=== PATIENT | male | born 1955 | race Caucasian/White ===

== ENCOUNTER → 2016-11-09 | Outpatient (CLI) | payer OTHER ==
[~2016-11-09] MED LIST: ATEN-173 PO; CETI10TA84 PO; CLON2TAB3 PO; FLUO20CA36 PO; GABA1CAP5 PO; LANS30CA12 PO; PSEU60TA80 PO; SIMV20TA2 PO; TIZA4CAP PO; TRAM-10 PO; TRIA3AER NAE; ZNTT/150 PO
[2016-11-09 13:32] LABS: AST/SGOT 52 U/L (15-37); BLOOD UREA NITROGEN 12 mg/dl (7-18); CALCIUM 8.8 mg/dl (8.5-10.1); CARBON DIOXIDE 28 mmol/L (21-32); CHLORIDE 103 mmol/L (98-107); CREATININE 0.98 mg/dl (0.60-1.40); GLUCOSE 111 mg/dl (70-99); SODIUM 140 mmol/L (136-145)
[2016-11-09 13:35] LABS: ALT/SGPT 72 U/L (12-78); CHOLESTEROL 168 mg/dl (0-200); CHOLESTEROL/HDL RATIO 2.7; HDL CHOLESTEROL 63 mg/dl; LDL CHOLESTEROL CALCULATED 73 mg/dl; TRIGLYCERIDES 160 mg/dl (0-150); VERY LOW DENSITY LIPOPROT CALC 32 mg/dl
== END | disposition home or self-care (01) ==
LOC: C.LABMFLN 08:22
PROVIDERS: ATTEND Family Medicine
DX: E78.5 Hyperlipidemia, unspecified (principal); I10 Essential (primary) hypertension

== ENCOUNTER → 2016-11-10 | Outpatient (CLI) | payer OTHER ==
[2016-11-10 12:54] LABS: URINE APPEARANCE CLEAR (CLEAR); URINE BILIRUBIN NEG (NEG); URINE COLOR DK YELLOW; URINE NITRITE NEG (NEG); URINE SPECIFIC GRAVITY 1.026 (1.000-1.030); UROBILINOGEN NEG (NEG)
[2016-11-10 12:59] LABS: MANUAL MICROSCOPIC REQUIRED? NO; REVIEW REQ? NO
== END | disposition home or self-care (01) ==
LOC: C.LABMFLN 10:30
PROVIDERS: ATTEND Family Medicine
DX: R10.30 Lower abdominal pain, unspecified (principal)

== ENCOUNTER → 2017-02-13 | Outpatient (CLI) | payer OTHER ==
--- NOTE | 2017-02-13 12:33 | DIAGNOSTIC IMAGING REPORT ---
L-SPINE MIN 4 VIEWS ROUTINE CLINICAL HISTORY: LUMBAR RADICULOPATHY COMPARISON: Lumbar spine CT myelogram March 22, 2013. FINDINGS: A posterior decompression is noted. Discectomies with interbody spacer placement are noted at the L2-L3, L3-L4 and L4-L5 levels. There are bilateral pedicle screws at the L2, L3 and L5 levels. Hardware is intact. There is no acute fracture. Osteophytosis is noted at L1-L2. IMPRESSION: 1. No acute lumbar spine fracture or subluxation. 2. Status post multilevel discectomy and bilateral pedicle screw fusion, as described above. Hardware intact. Electronically signed by: Edmond Rogers M.D. 02/13/2017 12:32 PM Dictated Date/Time: 02/13/2017 12:29 PM
--- NOTE | 2017-02-13 12:37 | DIAGNOSTIC IMAGING REPORT ---
RIGHT HIP 2 VIEWS HISTORY: CHRONIC RIGHT HIP PAIN Right COMPARISON: Right hip 04/06/2016. FINDINGS: There is no fracture or dislocation. Soft tissues are unremarkable. The visualized pelvic bones are intact. Mild cartilage space narrowing within the superior aspect of the right hip. IMPRESSION: No fractures. Mild right hip osteoarthritis, unchanged. Electronically signed by: Chris Taylor M.D. 02/13/2017 12:35 PM Dictated Date/Time: 02/13/2017 12:29 PM
== END | disposition home or self-care (01) ==
LOC: C.RAD 11:03
PROVIDERS: ATTEND Family Medicine
DX: M25.552 Pain in left hip (principal); M54.16 Radiculopathy, lumbar region; M25.551 Pain in right hip; G89.29 Other chronic pain

== ENCOUNTER → 2017-03-31 | Outpatient (CLI) | payer OTHER ==
[2017-03-31 13:15] LABS: BASO % 0.6 %; BASO ABS # 0.05 K/uL (0-0.2); COMPLETE YES; EOS % 4.1 %; HEMATOCRIT 42.3 % (42-52); IG% 0.1 %; LYMPH % 33.7 %; LYMPH ABS # 2.73 K/uL (1.2-3.4); MEAN CELL VOLUME 81.7 fL (80-100); MEAN CORPUSCULAR HEMOGLOBIN 27.2 pg (25-34); MEAN CORPUSCULAR HGB CONC 33.3 g/dl (32-36); MEAN PLATELET VOLUME 9.9 fL (7.4-10.4); MONO % 8.9 %; NEUT % 52.6 %; PLATELET COUNT 275 K/uL (130-400); RED BLOOD COUNT 5.18 M/uL (4.7-6.1); WHITE BLOOD COUNT 8.11 K/uL (4.8-10.8)
[2017-03-31 13:54] LABS: URINE APPEARANCE CLEAR (CLEAR); URINE BILIRUBIN NEG (NEG); URINE COLOR DK YELLOW; URINE NITRITE NEG (NEG); URINE PH 5.5 (4.5-7.5); URINE SPECIFIC GRAVITY 1.026 (1.000-1.030); UROBILINOGEN NEG (NEG)
[2017-03-31 14:00] LABS: MANUAL MICROSCOPIC REQUIRED? NO; REVIEW REQ? NO
== END | disposition home or self-care (01) ==
LOC: C.LABMFLN 08:40
PROVIDERS: ATTEND Family Medicine
DX: R07.89 Other chest pain (principal); R07.81 Pleurodynia; R61 Generalized hyperhidrosis

== ENCOUNTER → 2017-04-03 | Outpatient (CLI) | payer OTHER ==
--- NOTE | 2017-04-03 12:24 | DIAGNOSTIC IMAGING REPORT ---
CHEST 2 VIEWS ROUTINE CLINICAL HISTORY: Atypical chest pain. Rib tenderness. COMPARISON STUDY: Chest radiograph March 31, 2014. FINDINGS: There is no pneumothorax or pleural effusion. No consolidation to suggest pneumonia. Pulmonary vascularity is normal. Cardiomediastinal silhouette is normal. There is an old fracture of the midshaft of the right clavicle. IMPRESSION: No acute cardiopulmonary findings. Electronically signed by: Edmond Rogers M.D. 04/03/2017 12:23 PM Dictated Date/Time: 04/03/2017 12:22 PM
--- NOTE | 2017-04-03 12:36 | DIAGNOSTIC IMAGING REPORT ---
LEFT RIBS UNILATERAL MIN 2 VIEWS CLINICAL HISTORY: 61 years-old Male presenting with atypical chest pain and rib tenderness. TECHNIQUE: Frontal and oblique views of the left ribs were obtained. COMPARISON: Chest x-ray from 03/31/2014. FINDINGS: No displaced left rib fracture. Glenohumeral joint congruent. Partial visualization of lumbar spinal fusion hardware. Left lung and pleural space clear. IMPRESSION: 1. No displaced left rib fracture. Electronically signed by: Edy Caruso 04/03/2017 12:34 PM Dictated Date/Time: 04/03/2017 12:33 PM
== END | disposition home or self-care (01) ==
LOC: C.RAD 11:34
PROVIDERS: ATTEND Family Medicine
DX: R07.89 Other chest pain (principal); R61 Generalized hyperhidrosis; R07.81 Pleurodynia

== ENCOUNTER → 2017-06-13 | Outpatient (CLI) | payer OTHER ==
[2017-06-13 13:47] LABS: ALT/SGPT 62 U/L (12-78); BLOOD UREA NITROGEN 9 mg/dl (7-18); BUN/CREATININE RATIO 8.7 (10-20); CALCIUM 8.9 mg/dl (8.5-10.1); CARBON DIOXIDE 30 mmol/L (21-32); CHLORIDE 104 mmol/L (98-107); CHOLESTEROL 162 mg/dl (0-200); CREATININE 0.99 mg/dl (0.60-1.40); GLUCOSE 108 mg/dl (70-99); POTASSIUM 4.2 mmol/L (3.5-5.1); SODIUM 139 mmol/L (136-145); TRIGLYCERIDES 160 mg/dl (0-150); VERY LOW DENSITY LIPOPROT CALC 32 mg/dl
[2017-06-13 13:57] LABS: ALB/GLOB RATIO 1.1 (0.9-2); ALKALINE PHOSPHATASE 85 U/L (45-117); AST/SGOT 57 U/L (15-37); CHOLESTEROL/HDL RATIO 2.8; HDL CHOLESTEROL 58 mg/dl; LDL CHOLESTEROL CALCULATED 72 mg/dl; PROSTATE SPECIFIC ANTIGEN 0.636 ng/ml (0.000-4.000)
[2017-06-13 14:03] LABS: BASO % 0.7 %; BASO ABS # 0.06 K/uL (0-0.2); COMPLETE YES; EOS % 4.5 %; HEMATOCRIT 44.6 % (42-52); IG% 0.2 %; LYMPH % 39.2 %; LYMPH ABS # 3.43 K/uL (1.2-3.4); MEAN CELL VOLUME 83.1 fL (80-100); MEAN CORPUSCULAR HGB CONC 32.5 g/dl (32-36); MEAN PLATELET VOLUME 10.4 fL (7.4-10.4); MONO % 9.2 %; NEUT % 46.2 %; PLATELET COUNT 271 K/uL (130-400); RED BLOOD COUNT 5.37 M/uL (4.7-6.1); WHITE BLOOD COUNT 8.76 K/uL (4.8-10.8)
== END | disposition home or self-care (01) ==
LOC: C.LABMFLN 09:44
PROVIDERS: ATTEND Family Medicine
DX: I10 Essential (primary) hypertension (principal); Z12.5 Encounter for screening for malignant neoplasm of prostate; E78.5 Hyperlipidemia, unspecified; Z87.898 Personal history of other specified conditions

== ENCOUNTER → 2017-12-29 | Outpatient (CLI) | payer OTHER ==
[~2017-12-29] MED LIST changes: +GABA-1220 PO; -GABA1CAP5 PO; +RANI150T85 PO; -ZNTT/150 PO
[2017-12-29 17:59] LABS: BASO % 0.7 %; BASO ABS # 0.05 K/uL (0-0.2); EOS % 2.6 %; EOS ABS # 0.18 K/uL (0-0.5); HEMATOCRIT 41.1 % (42-52); HEMOGLOBIN 13.5 g/dL (14.0-18.0); IG# 0.01 K/uL (0.00-0.02); LYMPH % 30.6 %; LYMPH ABS # 2.13 K/uL (1.2-3.4); MEAN CELL VOLUME 80.3 fL (80-100); MEAN CORPUSCULAR HEMOGLOBIN 26.4 pg (25-34); MEAN CORPUSCULAR HGB CONC 32.8 g/dl (32-36); MEAN PLATELET VOLUME 9.7 fL (7.4-10.4); MONO % 7.9 %; MONO ABS # 0.55 K/uL (0.11-0.59); NEUT % 58.1 %; NEUT ABS # 4.05 K/uL (1.4-6.5); PLATELET COUNT 260 K/uL (130-400); RED CELL DISTRIBUTION WIDTH CV 14.5 % (11.5-14.5); RED CELL DISTRIBUTION WIDTH SD 41.8 fL (36.4-46.3); WHITE BLOOD COUNT 6.97 K/uL (4.8-10.8)
[2017-12-29 18:51] LABS: ALBUMIN 3.8 gm/dl (3.4-5.0); ALT/SGPT 47 U/L (12-78); AST/SGOT 35 U/L (15-37); BLOOD UREA NITROGEN 12 mg/dl (7-18); CALCIUM 8.6 mg/dl (8.5-10.1); CARBON DIOXIDE 23 mmol/L (21-32); CREATININE 1.02 mg/dl (0.60-1.40); GLUCOSE 180 mg/dl (70-99); POTASSIUM 3.5 mmol/L (3.5-5.1); SODIUM 135 mmol/L (136-145)
[2017-12-29 19:02] LABS: ALKALINE PHOSPHATASE 82 U/L (45-117); LIPASE 173 U/L (73-393); TOTAL PROTEIN 7.7 gm/dl (6.4-8.2)
== END | disposition home or self-care (01) ==
LOC: C.LABMFLN 11:04
PROVIDERS: ATTEND Family Medicine
DX: I10 Essential (primary) hypertension (principal); R61 Generalized hyperhidrosis; R10.12 Left upper quadrant pain

== ENCOUNTER → 2018-01-09 | Outpatient (CLI) | payer OTHER ==
[~2018-01-09] MED LIST changes: +OPTIRAY 320 IV PRN
--- NOTE | 2018-01-10 07:32 | DIAGNOSTIC IMAGING REPORT ---
ABD/PELVIS IV AND ORAL CONT CT DOSE: 1064.21 mGycm HISTORY: Pain. Nausea. R61 [id number] Abdominal pain, acute, left upper quadrant TECHNIQUE: Multiaxial CT images of the abdomen and pelvis were performed following the use of intravenous and oral contrast. A dose lowering technique was utilized adhering to the principles of ALARA. COMPARISON STUDY: 03/11/2015 FINDINGS: Lung bases are clear. Mild fatty infiltration of the liver. Spleen and pancreas are uniform. Right renal cyst unchanged. No evidence for hydronephrosis. The bowel pattern is considered nonobstructive. Within the cecum is a suggestion of wall thickening slightly increased from the prior study. This potentially relates to chronic cecal diverticulitis. There is a trace amount appear a colonic infiltrative change similar as compared to the prior exam. The appendix is normal. The bowel pattern overall is nonobstructive. Bladder is midline. There is no significant abdominal pelvic or inguinal adenopathy. IMPRESSION: 1. Mildly progressive wall thickening of the cecum with a trace amount of pericolonic infiltrative change. 2. Diagnostic possibilities include chronic cecal diverticular change versus a neoplastic process. 3. Colonoscopy with direct evaluation of this area suggested. 4. Normal appendix. 5. Remainder the study is remarkable only for a stable right renal cyst. The above report was generated using voice recognition software. It may contain grammatical, syntax or spelling errors. Electronically signed by: Eleazar Villalobos M.D. 01/09/2018 1:32 PM Dictated Date/Time: 01/09/2018 1:27 PM
== END | disposition home or self-care (01) ==
LOC: C.CTS 13:07
PROVIDERS: ATTEND Family Medicine
DX: R61 Generalized hyperhidrosis (principal); R10.12 Left upper quadrant pain

== ENCOUNTER → 2018-01-26 | Outpatient (CLI) | payer OTHER ==
[~2018-01-26] MED LIST changes: -ATEN-173 PO; +CLON1TAB3 PO; -CLON2TAB3 PO; +DEXT30TA7 PO; -FLUO20CA36 PO; +FLUO40CA8 PO; -LANS30CA12 PO; +LRS10 PO; +METO25TA56 PO; -OPTIRAY 320 IV PRN; +PRLSR20 PO; -PSEU60TA80 PO; -RANI150T85 PO; +TAMS0.4C38 PO; -TIZA4CAP PO; -TRIA3AER NAE
[2018-01-26 14:20] LABS: HEMOGLOBIN A1C 5.7 % (4.5-5.6)
== END | disposition home or self-care (01) ==
LOC: C.LABMFLN 09:35
PROVIDERS: ATTEND Family Medicine
DX: R73.09 Other abnormal glucose (principal)

== ENCOUNTER → 2018-01-30 | Day surgery (SDC) | payer OTHER ==
[2018-01-24 11:51] VITALS: BMI 43.0
[~2018-01-30] VITALS: Ht 170.2 cm; Wt 125.0 kg
[~2018-01-30] MED LIST changes: +SODIUM CHLORIDE 0.9% 500ML 500 ML IV ONE
[2018-01-30 09:45] VITALS: Ht 170.2 cm; Wt 125.0 kg
--- NOTE | 2018-01-30 09:50 | Endo History and Physical ---
History & Physical Date of Service: January 30, 2018. Chief Complaint: Abnormal CT Scan Referring Physician: Dr. Benson History of Present Illness 62 yo CM who presents for colonoscopy secondary to abnormal CT scan. Past Medical History Arthritis, Fractures, Anxiety, Reflux, High Cholesterol, Sleep Apnea, Hypertension, Other, Depression, [place] Past Surgical History Hx Cardiac Surgery: Yes (CARDIAC CATH/NO STENTS) Hx Internal Defibrillator: No Hx Pacemaker: No Hx Abdominal Surgery: Yes (RENE) Hx of Implantable Prosthesis: No Hx Post-Op Nausea and Vomiting: No Hx Cancer Surgery: No Hx Thoracic Surgery: No Hx Orthopedic: Yes (LUMBAR FUSION X 2) Hx Urinary Tract Surgery: No Family History None Social History Smoking Status: Never Smoker Hx Substance Use: No Hx Alcohol Use: No Allergies Coded Allergies: Budesonide (Verified Allergy, Unknown, ? PULMICORT ?, 01/30/18) Celecoxib (Unverified Allergy, Unknown, SWELLING EDEMA, 01/30/18) Edetic Acid (Verified Allergy, Unknown, ? PULMICORT ?, 01/30/18) Rofecoxib (Verified Allergy, Unknown, "HANDS AND FEET SWELLING", 01/30/18) Sorbitan (Verified Allergy, Unknown, ? PULMICORT ?, 01/30/18) Levofloxacin (Unverified Adverse Reaction, Intermediate, SEVERE NAUSEA VOMITING, 01/30/18) Uncoded Allergies: PULMICORT (Allergy, Unknown, HIVES, TONGUE AND THROAT SWELLING, 12/09/14) Current Medications Reported Home Medications Medications Dose Route/Sig Max Daily Dose Days Date Category Flomax (Tamsulosin Hcl) 0.4 Mg Cap 0.4 Mg PO HS 01/24/18 Reported Zocor (Simvastatin) 20 Mg Tab 20 Mg PO QPM 01/24/18 Reported Prilosec (Omeprazole) 20 Mg Capcr 20 Mg PO BID 01/24/18 Reported Mucinex Dm (Dextromethorphan-Guaifenesin) 1 Tab Tab 1 Tab PO BID 01/24/18 Reported Lopressor (Metoprolol Tartrate) 25 Mg Tab 0.5 Tab PO BID 01/24/18 Reported Neurontin (Gabapentin) 400 Mg Cap 800 Mg PO TID 01/24/18 Reported Prozac (Fluoxetine HCl) 40 Mg Cap 40 Mg PO QAM 01/24/18 Reported Klonopin (Clonazepam) 1 Mg Tab 1 Mg PO HS 01/24/18 Reported Zyrtec (Cetirizine HCl) 10 Mg Tab 10 Mg PO HS 01/24/18 Reported Baclofen 10 Mg Tab 1 Tab PO BID 01/24/18 Reported Ultram (Tramadol HCl) 50 Mg Tab 50 Mg PO Q4H PRN 04/08/15 Reported Vital Signs Weight (Kilograms): 125.00 Height (Feet): 5 Height (Inches): 7 Physical Exam General Appearance: WD/WN, no apparent distress Respiratory/Chest: Auscultation: breath sounds normal Cardiovascular: Heart Auscultation: RRR Abdomen: Bowel Sounds: normal Inspection & Palpation: soft, non-distended, no tenderness, guarding & rebound Assessment and Plan Assessment: 62 yo CM who presents for colonoscopy secondary to abnormal CT scan. Plan: Proceed with colonoscopy.
--- NOTE | 2018-01-30 11:03 | GI REPORT ---
Patient Name: Pantera Khan Procedure Date: 01/30/2018 9:55 AM Date of : 1955 Admit Type: Outpatient Age: 62 Gender: Male Attending MD: Barry Haro DO Procedure: Colonoscopy Providers: Barry Haro DO Referring MD: George Benson Indications: Abnormal CT of the GI tract Medicines: Monitored Anesthesia Care Complications: No immediate complications. Estimated Blood Loss: Estimated blood loss: none. Procedure: Pre-Anesthesia Assessment: - Prior to the procedure, a History and Physical was performed, and patient medications and allergies were reviewed. The patient's tolerance of previous anesthesia was also reviewed. The risks and benefits of the procedure and the sedation options and risks were discussed with the patient. All questions were answered, and informed consent was obtained. Prior Anticoagulants: The patient has taken no previous anticoagulant or antiplatelet agents. ASA Grade Assessment: II - A patient with mild systemic disease. After reviewing the risks and benefits, the patient was deemed in satisfactory condition to undergo the procedure. After I obtained informed consent, the scope was passed under direct vision. Throughout the procedure, the patient's blood pressure, pulse, and oxygen saturations were monitored continuously. The scope was introduced through the anus and advanced to the terminal ileum. The colonoscopy was performed without difficulty. The patient tolerated the procedure well. The quality of the bowel preparation was good. The terminal ileum, ileocecal valve, appendiceal orifice, and rectum were photographed. Findings: The perianal and digital rectal examinations were normal. A 5 mm polyp was found in the transverse colon. The polyp was sessile. The polyp was removed with a hot snare. Resection and retrieval were complete. Multiple small-mouthed diverticula were found in the sigmoid colon. Impression: - One 5 mm polyp in the transverse colon, removed with a hot snare. Resected and retrieved. - Diverticulosis in the sigmoid colon. - No findings in the cecum (inculding retroflexion) to explain patient's CT imaging findings. Recommendation: - Resume previous diet. - Continue present medications. - Repeat colonoscopy for surveillance based on pathology results. - Return to primary care physician as previously scheduled. Barry Haro DO 01/30/2018 11:02:55 AM This report has been signed electronically. Note Initiated On: 01/30/2018 9:55 AM Number of Addenda: 0 I attest to the content of the Intraoperative Record and orders documented therein, exceptions below {[id number]}
--- NOTE | 2018-01-30 11:05 | Discharge Instructions ---
Endoscopy Patient Instructions Date / Procedure(s) Performed January 30, 2018. Colonoscopy Allergy Information Coded Allergies: Budesonide (Verified Allergy, Unknown, ? PULMICORT ?, 01/30/18) Celecoxib (Unverified Allergy, Unknown, SWELLING EDEMA, 01/30/18) Edetic Acid (Verified Allergy, Unknown, ? PULMICORT ?, 01/30/18) Rofecoxib (Verified Allergy, Unknown, "HANDS AND FEET SWELLING", 01/30/18) Sorbitan (Verified Allergy, Unknown, ? PULMICORT ?, 01/30/18) Levofloxacin (Unverified Adverse Reaction, Intermediate, SEVERE NAUSEA VOMITING, 01/30/18) Uncoded Allergies: PULMICORT (Allergy, Unknown, HIVES, TONGUE AND THROAT SWELLING, 12/09/14) Discharge Date / Findings January 30, 2018. Colon polyp Diverticulosis Internal hemorrhoids Medication Instructions OK to resume all medications today as prescribed Reported Home Medications Medications Dose Route/Sig Max Daily Dose Days Date Category Flomax (Tamsulosin Hcl) 0.4 Mg Cap 0.4 Mg PO HS 01/24/18 Reported Zocor (Simvastatin) 20 Mg Tab 20 Mg PO QPM 01/24/18 Reported Prilosec (Omeprazole) 20 Mg Capcr 20 Mg PO BID 01/24/18 Reported Mucinex Dm (Dextromethorphan-Guaifenesin) 1 Tab Tab 1 Tab PO BID 01/24/18 Reported Lopressor (Metoprolol Tartrate) 25 Mg Tab 0.5 Tab PO BID 01/24/18 Reported Neurontin (Gabapentin) 400 Mg Cap 800 Mg PO TID 01/24/18 Reported Prozac (Fluoxetine HCl) 40 Mg Cap 40 Mg PO QAM 01/24/18 Reported Klonopin (Clonazepam) 1 Mg Tab 1 Mg PO HS 01/24/18 Reported Zyrtec (Cetirizine HCl) 10 Mg Tab 10 Mg PO HS 01/24/18 Reported Baclofen 10 Mg Tab 1 Tab PO BID 01/24/18 Reported Ultram (Tramadol HCl) 50 Mg Tab 50 Mg PO Q4H PRN 04/08/15 Reported Provider Instructions Activity Restrictions - No exercising or heavy lifting for 24 hours. - Do not drink alcohol the day of the procedure. - Do not drive a car or operate machinery until the day after the procedure. - Do not make any important decisions or sign important papers in 24 hours after the procedure. Following Day: - Return to full activity which may include returning to work/school. Diet Start your diet with liquids and light foods (jello, soup, juice, toast). Then eat your usual diet if not nauseated. Treatment For Common After Affects For mild abdominal pain, bloating, or excessive gas: - Rest - Eat lightly - Lie on right side Follow-Up Information Follow-up with DR GARDNER as scheduled Anesthesia Information What You Should Know You have had a procedure that required some medicine to reduce anxiety and discomfort. This treatment is called moderate sedation. After receiving the treatment, you may be sleepy, but you will be able to breathe on your own. The effects of the treatment may last for several hours. Follow these instructions along with Activity/Diet recommendations noted above: * Do NOT do anything where dizziness or clumsiness would be dangerous. * Rest quietly at home today, then you can be up and about tomorrow. * Have a responsible person stay with you the rest of today. * You may have had an I.V. today. If so, you may take the dressing off later today. Recommendations Call your doctor if: * Trouble breathing * Continuous vomiting for more than 24 hours * Temperature above 101 degrees * Severe abdominal pain or bloating * Pain not relieved by pain medicine ordered * There is increased drainage or redness from any incision * A large amount of rectal bleeding greater than 2-3 tablespoons. (If you had a polyp/s removed or have hemorrhoids, a small amount of blood - from the rectum is to be expected.) * You have any unanswered questions or concerns. IN THE EVENT OF A SERIOUS EMERGENCY, GO TO THE NEAREST EMERGENCY ROOM Your discharge instructions were prepared by provider Barry Haro. Patient Instructions Signature Page Pantera Khan Patient (or Guardian) Signature/Date: I have read and understand the instructions given to me by my caregivers. Caregiver/RN/Doctor Signature/Date: The above-named patient and/or guardian has received patient instructions on this date. + Original Patient Signature Page (only) stays with chart. Please make copy for patient.
--- NOTE | 2018-01-30 11:21 | Anesthesiology Progress Note ---
Anesthesia Post Op Note Date & Time January 30, 2018 at 11:21 Vital Signs Pain Intensity: 5 Vital Signs Past 12 Hours Date Time Temp Pulse Resp B/P (MAP) Pulse Ox O2 Delivery O2 Flow Rate FiO2 01/30/18 11:10 65 20 152/90 (110) 96 Room Air 01/30/18 10:55 36.7 73 16 132/90 (104) 95 Room Air 01/30/18 09:51 36.8 64 20 145/81 (102) 96 Room Air Notes Mental Status: alert / awake / arousable, participated in evaluation Pt Amnestic to Procedure: Yes Nausea / Vomiting: adequately controlled Pain: adequately controlled Airway Patency, RR, SpO2: stable & adequate BP & HR: stable & adequate Hydration State: stable & adequate Anesthetic Complications: no major complications apparent
[2018-01-30 11:25] VITALS: BP 152/96; PULSE 63; O2SAT 96
== END | disposition home or self-care (01) ==
LOC: C.GI 09:25
PROVIDERS: ATTEND Internal Medicine
DX: Z12.11 Encounter for screening for malignant neoplasm of colon (principal); D12.3 Benign neoplasm of transverse colon; K57.30 Diverticulosis of large intestine without perforation or abscess without bleeding; K64.8 Other hemorrhoids; I10 Essential (primary) hypertension; G47.33 Obstructive sleep apnea (adult) (pediatric); K21.9 Gastro-esophageal reflux disease without esophagitis; M19.90 Unspecified osteoarthritis, unspecified site; F32.9 Major depressive disorder, single episode, unspecified; I25.2 Old myocardial infarction; E66.9 Obesity, unspecified; Z68.41 Body mass index [BMI] 40.0-44.9, adult; Z98.1 Arthrodesis status; Z90.49 Acquired absence of other specified parts of digestive tract

== ENCOUNTER → 2018-05-08 | Outpatient (CLI) | payer OTHER ==
[~2018-05-08] MED LIST changes: +CLON1TAB10 PO; -CLON1TAB3 PO; -SODIUM CHLORIDE 0.9% 500ML 500 ML IV ONE
--- NOTE | 2018-05-08 10:43 | DIAGNOSTIC IMAGING REPORT ---
CHEST 2 VIEWS ROUTINE CLINICAL HISTORY: Status post intercostal nerve block. Evaluate for pneumothorax. COMPARISON STUDY: Chest radiograph April 03, 2017. FINDINGS: There is no pneumothorax or pleural effusion. Lungs are clear. Cardiac size is normal. Mediastinal contours are normal. There is no evidence for pulmonary edema. Old right clavicular fracture is noted. IMPRESSION: No acute cardiopulmonary findings. No pneumothorax. Electronically signed by: Edmond Rogers M.D. 05/08/2018 10:42 AM Dictated Date/Time: 05/08/2018 10:40 AM
== END | disposition home or self-care (01) ==
LOC: C.RADBC 09:19
PROVIDERS: ATTEND Anesthesiology
DX: Z98.890 Other specified postprocedural states (principal)